=== PATIENT | female | born 1995 ===

== ENCOUNTER 2019-08-30 18:16 | Emergency (ER) | payer OTHER, SELFPAY ==
[~2019-08-30 18:16] MED LIST: Iopamidol 370 76% 100 ML VIAL ONE
[2019-08-30] MEDS ORDERED: diphenhydrAMINE 50 MG/ML VIAL ONE (18:38)
[2019-08-30] MEDS ORDERED: Famotidine/PF 20 mg/2ml Vial ONE (18:38)
[2019-08-30] MEDS ORDERED: methylPREDNISolone Sod Succ/PF 125 MG/2 ML VIAL ONE (18:38)
[2019-08-30] MEDS ORDERED: Fentanyl 100 MCG/2 ML VIAL ONE (18:38)
[2019-08-30] MEDS ORDERED: Morphine 4 MG/ML VIAL ONE ×4 (18:41→23:01)
[2019-08-30 18:57] LABS: #Lymphocytes 2.6 thou/uL (1.20-3.40); #Monocytes 0.9 thou/uL (0.11-0.59); %Basophils 0.3 % (0.0-1.0); %Eosinophils 0.2 % (0.0-10.0); %Lymphocytes 22.3 % (21.0-51.0); %Monocytes 7.6 % (0.0-10.0); %Neutrophils 69.5 % (42.0-75.0); Hemoglobin 11.9 g/dL (12.0-16.0); Mean Corpuscular HGB CONC 32.8 g/dL (32.0-36.0); Mean Corpuscular Hemoglobin 26.6 pg (27.0-31.0); Mean Corpuscular Volume 81.2 fL (78.0-98.0); Mean Platelet Volume 8.1 fL (7.4-10.4); Platelet Count 287 thou/uL (130-400); RBC Distribution Width 15.7 % (11.5-14.5); Red Blood Cell (RBC) Count 4.46 mill/uL (4.20-5.40); White Blood Cell (WBC) Count 11.5 thou/uL (4.8-10.8)
[2019-08-30 19:04] LABS: BHCG - Serum Negative (NEGATIVE); Pregs Control Background? CLEAR/WHITE (CLR/WHITE); Pregs Control Bar Appear? YES (CONTROL BAR)
[2019-08-30 19:13] LABS: ALT (SGPT) 30 U/L (8-55); AST (SGOT) 16 U/L (5-34); Albumin 4.3 g/dL (3.5-5.0); Alkaline Phosphatase 104 U/L (40-110); Anion Gap 12 mmol/L (10-20); BUN (Urea Nitrogen) 11 mg/dL (7.0-18.7); Bilirubin, Total 0.2 mg/dL (0.2-1.2); Calc. Creatinine Clearance 0 mL/min (70-130); Calcium 9.2 mg/dL (7.8-10.44); Carbon Dioxide 26 mmol/L (22-29); Chloride 108 mmol/L (98-107); Estimated GFR-MDRD 89; Globulin 2.7 g/dL (2.4-3.5); Glucose 96 mg/dL (70-105); Potassium 3.2 mmol/L (3.5-5.1); Sodium 143 mmol/L (136-145)
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
[2019-08-30] MEDS ORDERED: PROPOFOL 20 ML ONE (22:04)
== END 2019-08-30 23:30 | disposition home or self-care (01) ==
LOC: ERS 18:16
DX: S03.02XA Dislocation of jaw, left side, initial encounter (principal); V87.8XXA Person injured in other specified noncollision transport accidents involving motor vehicle (traffic), initial encounter
CPT/HCPCS: 21480; 70450; 70486; 71045; 71260; 72125; 74177; 80053; 84703; 85025; 93005; 96374; 96375; 96376; 99152; J1200; J2270; J2704; J2930; J3010; Q9967; S0028